=== PATIENT | female | born 1930 | race Caucasian/White ===

== ENCOUNTER 2017-09-13 21:14 | Inpatient (IN) | payer MEDICARE, MEDICAID ==
[~2017-09-13 21:14] MED LIST: ISOVUE-370 76%-LOCM 1 ML ONE
[2017-09-13 22:23] LABS: Lactic Acid - Sepsis 1.1 mmol/L (0.5-2.2)
[2017-09-13 22:25] LABS: Anion Gap 15 mmol/L (10-20); BUN (Urea Nitrogen) 31 mg/dL (9.8-20.1); Calc. Creatinine Clearance 0 mL/min (70-130); Calcium 9.6 mg/dL (7.8-10.44); Carbon Dioxide 24 mmol/L (23-31); Chloride 110 mmol/L (98-107); Estimated GFR-MDRD 74
[2017-09-13 22:28] LABS: Troponin I 0.046 ng/mL (< 0.028)
--- NOTE | 2017-09-14 00:18 | CT ---
CONTRAST ENHANCED CT IMAGES ABDOMEN AND PELVIS 09/13/17 HISTORY: 87-year-old with history of advanced dementia with abdominal pain. IV contrast was given. Unfortunately oral contrast was not given. The lung bases demonstrate some minimal bibasilar atelectasis. No evidence of free intraperitoneal air seen. The liver, spleen, gallbladder, and pancreas are unremarkable. A small amount of fluid is seen surrounding the right hepatic lobe. Adrenal glands and kidneys are u nremarkable. Extensive gastric distention is seen. There is marked small bowel dilatation with small bowel having diameter up to 5 cm. There is an area of abrupt caliber change in the right lower quadrant of the abdomen in the region o f the ileum. Proximal to this, the small bowel loops are markedly dilated while distal to this from the transition point to the ileocecal valve, the small bowel is decompressed. This is concerning for a focal area of bowel obstruction. The colon demonstrates no significant abnormalities. Some mild d escending colonic diverticulosis is seen. A moderate amount of stool is seen in the rectum. Sigmoid colonic diverticulosis is also present. IMPRESSION: Severe proximal mid small bowel dilatation compatible with small bowel obstruction due to area of fo colleen caliber change in the ileum. this is seen in the right lower quadrant of the abdomen. POS: VIJAY
[2017-09-14] MEDS ORDERED: Ondansetron HCl/PF 4 MG/2 ML Vial IVP PRN (00:24)
[2017-09-14] MEDS ORDERED: hydrALAZINE 20 MG/ML VIAL SLOW IVP PRN ×2 (00:42→02:01)
--- NOTE | 2017-09-14 01:36 | HP ---
PRIMARY CARE PROVIDER: Romulo Puckett MD CHIEF COMPLAINT: Abdominal pain. HISTORY OF PRESENT ILLNESS: Ms. Ann is a pleasant 87-year-old lady who was seen at [facility] on 09/14/2017. The patient is currently not able to provide any history. History was obtained from review of medical records, discussion with the emergency room physician, and discussion with her son over the telephone. At baseline, Ms. Ann is reportedly oriented to person. She has a history of dementia. She was found to have altered mental status yesterday. She was therefore sent to the emergency room. She also reportedly had abdominal pain. Further details about the abdominal pain, were not elicitable. She was found to be in atrial fibrillation/flutter with rapid ventricular response at [place]. She was started on a Cardizem drip and transferred to this facility. Here, she had a CT scan of the abdomen, which reportedly shows small-bowel obstruction. REVIEW OF SYSTEMS: Could not be obtained. Ms. Ann was last hospitalized at this facility for a right MCA stroke in 2015. PAST MEDICAL HISTORY: Significant for hypertension, hypothyroidism, coronary artery disease, congestive heart failure, dyslipidemia, dementia, atrial fibrillation, hysterectomy, and cerebrovascular accident. PAST SURGICAL HISTORY: Hysterectomy and stent placement. PSYCHIATRIC HISTORY: Depression, anxiety. SOCIAL HISTORY: No history of tobacco use, alcohol use, or recreational drug use. She lives at [facility]. CODE STATUS: I have discussed her code status with her son. She is DNR. FAMILY HISTORY: could not be obtained from patient. ALLERGIES: SULFA. CURRENT MEDICATIONS: Include furosemide 20 mg daily, amlodipine 5 mg daily, Ranexa 500 mg daily, Protonix 40 mg daily, atorvastatin 40 mg daily, Xanax 0.25 mg two times a day, Tylenol 500 mg daily, aspirin 325 mg daily, Plavix 75 mg daily, Namenda 10 mg daily, Prozac 10 mg daily, Coreg 12.5 mg two times a day, Ultram 50 mg every 8 hours as needed, and Colace 100 mg daily as needed. PHYSICAL EXAMINATION: GENERAL: Ms. Ann is awake and alert, not in acute distress. VITAL SIGNS: Blood pressure is 117/71, pulse is 85. She is breathing at rate of 30 and saturating 93% on 2 liters of oxygen. She is afebrile. EYES: No scleral icterus. No conjunctival pallor. ENT: Dry mucosal membranes, no oropharyngeal erythema or exudates. NECK: Supple, nontender, normal range of movement, trachea is midline. RESPIRATORY: Accessory muscles of breathing are not active. Chest wall movements are symmetric bilaterally. LUNGS: Clear to auscultation without wheeze, rhonchi, or crepitations. CARDIOVASCULAR: S1 and S2 are heard, tachycardic and irregular. Peripheral pulses palpable. No carotid bruit, no pericardial rub. ABDOMEN: Soft, mild diffuse tenderness, no guarding or rigidity, hypoactive bowel sounds, no hepatomegaly, no splenomegaly. NEUROLOGIC: Full neurologic examination was not possible secondary to the patient's noncooperation. Pupils are equal and reactive to light. There is no facial droop. She is moving all 4 extremities. Deep tendon reflexes 2+, plantar reflexes are downgoing bilaterally. MUSCULOSKELETAL: Moving all 4 extremities, unable to assess power because of the patient's noncooperation. PSYCHIATRIC: Normal mood, normal affect, unable to assess orientation to person , place, or time. LYMPHATIC: No cervical lymphadenopathy. SKIN: No rashes or subcutaneous nodules. LABORATORY DATA: Ms. Ann's labs and investigations were reviewed. I have reviewed her electrocardiogram, which shows atrial fibrillation/flutter with variable AV block. I have also reviewed her chest x-ray, which does not show any pulmonary infiltrates. She also had CT scan of the abdomen and pelvis, which has been reported to show severe proximal, mid small bowel dilatation, combatable with small-bowel obstruction. Laboratory investigations show an elevated sodium of 146, decreased potassium of 3.4, elevated blood urea nitrogen 31, normal creatinine. Indeterminate troponin I of 0.046. White count 10,700, hemoglobin 15.7, normal platelet count. Normal total bilirubin, normal AST, normal ALT, normal alkaline phosphatase. Urinalysis is positive for protein, blood, and bilirubin, negative for nitrites and leukocyte esterase. ASSESSMENT AND PLAN: Ms. Ann is a pleasant 87-year-old lady who was seen at [facility]. Her problem list includes: 1. Atrial fibrillation. Ms. Ann has atrial fibrillation/flutter with variable response. She does have a history of atrial fibrillation in the past. She has been started on a Cardizem drip, we will continue the same. We will monitor her on telemetry and obtain Cardiology Service input. 2. Small-bowel obstruction: Patient has nasogastric tube to suction. The emergency room physician has already discussed her case with surgeon wig sales consultant, who will see her tomorrow. We will await further input. 3. Hypernatremia: The patient is clinically dry. We will provide intravenous fluids and recheck. 4. Hypokalemia: We will replace through IV fluids. 5. History of stroke. We will continue aspirin and Plavix when she is able to take oral medications. 6. Dyslipidemia: Continue statins when she is able to take oral medications. 7. Hypertension: Monitor vital signs, resume home medications when possible, p.r.n. IV hydralazine for now. 8. Dementia: Continue memantine. Many thanks for allowing me to participate in your patient's care. Please feel free to contact me with any questions or concerns. LEVEL OF RISK: High. LEVEL OF COMPLEXITY: High. MTDD
[2017-09-14] MEDS: Diltiazem 125 MG in Sodium Chloride 0.9% 100 ML IVPB SCH ×2 (02:05→15:31)
[2017-09-14] MEDS: Potassium Chloride 30 MEQ in Sodium Chloride 0.9% 1,000 ML IV SCH ×2 (02:06→16:16)
[2017-09-14 06:28] LABS: Mean Platelet Volume 7.8 fL (7.4-10.4); Red Blood Cell (RBC) Count 4.91 mill/uL (4.20-5.40); White Blood Cell (WBC) Count 10.2 thou/uL (4.8-10.8)
[2017-09-14 06:33] LABS: Anion Gap 12 mmol/L (10-20); BUN (Urea Nitrogen) 33 mg/dL (9.8-20.1); Calc. Creatinine Clearance 59 mL/min (70-130); Calcium 9.2 mg/dL (7.8-10.44); Carbon Dioxide 25 mmol/L (23-31); Chloride 114 mmol/L (98-107); Estimated GFR-MDRD 78
[2017-09-14 06:53] LABS: Band 20 % (5-11); Neutrophil 41 % (42-75)
--- NOTE | 2017-09-14 08:08 | RAD ---
SUPINE ABDOMEN: History: Assess NG tube placement. FINDINGS/IMPRESSION: NG tube has been placed. The tip overlies the left upper quadrant residing in the mid gastric fundus . Gas filled dilated loops of small bowel noted in the upper abdomen consistent with recent CT findi ngs. POS: VIJAY
[2017-09-14] MEDS ORDERED: FLU VACC TS2017-18 (>65YR) 0.5 ML SYRINGE IM ONE (09:00)
--- NOTE | 2017-09-14 09:44 | CON ---
DATE OF CONSULTATION: 09/14/2017 HISTORY: The patient is an unfortunate 87-year-old woman with a history of severe dementia who presents with a small-bowel obstruction and was noted be in rapid irregular heart rate. The patient is unable to give a coherent history. She was seen 2 years ago with chest discomfort. She has previously undergone PTCA and stent placement in [place]. The patient was placed on medical therapy. The patient presented in 09/2016 with an acute CVA. She received t- PA. The patient was placed on medical therapy. The patient has a history of atrial fibrillation, but is not on anticoagulation secondary to a fall risk. The patient today is disoriented and unable to give a coherent history. PAST MEDICAL HISTORY: 1. Coronary artery disease. 2. Hypertension. 3. History of atrial fibrillation. 4. Dementia. 5. History of cerebrovascular accident. PAST SURGICAL HISTORY: Hysterectomy. SOCIAL HISTORY: [facility]. FAMILY HISTORY: Unobtainable. REVIEW OF SYSTEMS: Unobtainable. ALLERGIES: SULFA DRUGS. MEDICATIONS ON ADMISSION: Namenda 10 daily, Prozac 10 daily, Coreg 12.5 b.i.d. , Ultram 50 q.8h., Protonix 40 daily, Lipitor 40 daily, Xanax 0.25 b.i.d., Ranexa 500 daily, Norvasc 5 daily, Lasix 20 daily. PHYSICAL EXAMINATION: GENERAL: Elderly woman, alert and oriented x1. VITAL SIGNS: Blood pressure was 116/57, heart rate 90. NECK: Showed no jugular venous distention. LUNGS: Coarse breath sounds bilateral. HEART: Irregular rate and rhythm, normal S1, S2. ABDOMEN: Mildly distended. EXTREMITIES: Showed trace edema. NEUROLOGIC: Alert and oriented x1. VASCULAR: Radial pulses are 2+. SKIN: Warm and dry. LABORATORY: Sodium 147, potassium 3.6, chloride 114, bicarbonate 25, BUN 33, creatinine 0.74, glucose 158. White blood count 10.2, hemoglobin 15.5, hematocrit 48.0, her platelets were 301. Her EKG revealed atrial fibrillation with poor R-wave progression. IMPRESSION: 1. Atrial fibrillation with rapid ventricular response. 2. History of percutaneous transluminal coronary angioplasty and stent placement. 3. History of cerebrovascular accident. 4. Hypertension. 5. Dementia. 6. Small-bowel obstruction. This patient presents with rapid atrial fibrillation and was placed on IV Cardizem. Her heart rate is now fairly well controlled. The patient would be a poor candidate for anticoagulation with her history of falling. From a cardiac standpoint I would continue IV Cardizem. We will follow this patient with you throughout her hospitalization. LELIA
--- NOTE | 2017-09-14 10:03 | PDOC.PN ---
- Subjective Encounter Start Date: 09/14/17 Encounter Start Time: 09:00 Subjective: awakens, not in distress -: follows some verbal stimuli -: deena ng tube to intermittent suction - Objective Resuscitation Status: Resuscitation Status DNR:Do Not Resuscitate MAR Reviewed: Yes Vital Signs & Weight: Vital Signs (12 hours) Temp Pulse Resp BP Pulse Ox 09/14/17 04:00 98.1 F 113 H 16 116/57 L 97 09/14/17 01:35 97.5 F L 112 H 20 96 09/14/17 01:30 97.5 F L 112 H 20 135/62 96 Weight Weight 154 lb I&O: 09/13/17 09/14/17 09/15/17 06:59 06:59 06:59 Intake Total 345 Balance 345 Result Diagrams: 09/14/17 05:59 09/14/17 05:59 Phys Exam - Physical Examination HEENT: PERRLA, sclera anicteric dry mucosa Neck: no JVD, supple Respiratory: no wheezing, no rales Cardiovascular: no significant murmur, irregular Gastrointestinal: soft tenderness + in right quadrants, no rigidity Musculoskeletal: no edema, pulses present old left hemiparesis Dx/Plan (1) Afib Code(s): I48.91 - UNSPECIFIED ATRIAL FIBRILLATION Status: Acute (2) SBO (small bowel obstruction) Code(s): K56.609 - UNSP INTESTNL OBST, UNSP TO PARTIAL VERSUS COMPLETE OBST Status: Acute (3) Dementia Code(s): F03.90 - UNSPECIFIED DEMENTIA WITHOUT BEHAVIORAL DISTURBANCE Status: Chronic Qualifiers: Dementia type: unspecified type Dementia behavioral disturbance: with behavioral disturbance Qualified Code(s): F03.91 - Unspecified dementia with behavioral disturbance (4) Demand ischemia of myocardium Code(s): I24.8 - OTHER FORMS OF ACUTE ISCHEMIC HEART DISEASE Status: Acute (5) Dyslipidemia Code(s): E78.5 - HYPERLIPIDEMIA, UNSPECIFIED Status: Chronic (6) Hypothyroidism Code(s): E03.9 - HYPOTHYROIDISM, UNSPECIFIED Status: Chronic Qualifiers: Hypothyroidism type: unspecified Qualified Code(s): E03.9 - Hypothyroidism , unspecified (7) Left hemiplegia Code(s): G81.94 - HEMIPLEGIA, UNSPECIFIED AFFECTING LEFT NONDOMINANT SIDE Status: Chronic Comment: prior h/o right MCA stroke (8) CAD (coronary artery disease) Code(s): I25.10 - ATHSCL HEART DISEASE OF [place] CORONARY ARTERY W/O ANG PCTRS Status: Chronic Qualifiers: Coronary Disease-Associated Artery/Lesion type: [place] artery [place] vs. transplanted heart: [place] heart (9) Hypertension Code(s): I10 - ESSENTIAL (PRIMARY) HYPERTENSION Status: Chronic Qualifiers: Hypertension type: essential hypertension Qualified Code(s): I10 - Essential (primary) hypertension - Plan is npo with ng tube and intermittent low suction for sbo -: on cardizem drip with v.rates around 100 -: gentle iv hydration -: watch for electrolytes, cbc differential is abnormal and will f/u serially -: sbo per gen surgery advice * . Review of Systems - Medications/Allergies Allergies/Adverse Reactions: Allergies Allergy/AdvReac Type Severity Reaction Status Date / Time Sulfa (Sulfonamide Allergy Verified 10/27/15 01:42 Antibiotics) Medications: Current Medications Acetaminophen (Tylenol) 650 mg [place] Q4H PRN PRN Reason: Headache/Fever or Pain Enoxaparin Sodium (Lovenox) 30 mg SC 0900 IRA Hydralazine HCl (Apresoline) 10 mg SLOW IVP Q6H PRN PRN Reason: SBP Greater Than 170 Diltiazem HCl 125 mg/ Sodium (Chloride) 125 mls @ 10 mls/hr IVPB INF IRA; 10 MG /HR PRN Reason: Protocol Last Admin: 09/14/17 02:05 Dose: 125 mls Potassium Chloride 30 meq/ (Sodium Chloride) 1,015 mls @ 75 mls/hr IV .[id number] IRA Last Admin: 09/14/17 02:06 Dose: 1,015 mls Ondansetron HCl (Zofran) 4 mg IVP Q6H PRN PRN Reason: Nausea/Vomiting Sodium Chloride (Flush - Normal Saline) 10 ml IVF Q12HR IRA Sodium Chloride (Flush - Normal Saline) 10 ml IVF PRN PRN PRN Reason: Saline Flush
--- NOTE | 2017-09-14 10:42 | CON ---
DATE OF CONSULTATION: 09/14/2017 REQUESTING PHYSICIAN: Consult is from the [facility] at [place]. CHIEF COMPLAINT: Bowel obstruction. HISTORY OF PRESENT ILLNESS: This is an 87-year-old female with history of hysterectomy who presents with small-bowel obstruction, abdominal distention, complaining of pain, anorexia, transferred from the shelter. CT scan reveals evidence of small-bowel obstruction. There is no perforation. There is no free fluid or free air on the CT scan. The patient has dementia and is unable to partic ipate in the history. She has also been found to be in atrial flutter. PAST MEDICAL HISTORY: Hypertension, hypothyroidism, coronary artery disease, congestive heart failu re, dyslipidemia, chronic atrial fibrillation, hysterectomy, CVA. PAST SURGICAL HISTORY: Hysterectomy and cardiac stent. MEDICINES TAKEN DAILY: See list. ALLERGIES TO MEDICINES: SULFA. REVIEW OF SYSTEMS: Unable to obtain. CODE STATUS: DNR. PHYSICAL EXAMINATION: VITAL SIGNS: Blood pressure 115/57, pulse 113, respirations 16. She is afebrile. HEENT: Sclerae are anicteric. Oropharynx clear. NECK: No lymphadenopathy. CHEST: Coarse breath sounds. HEART: Regular, increased rate, irregular rhythm. ABDOMEN: Her abdomen is distended, but soft. Tender in the right lower quadrant with localized gua rding, but no rebound. No diffuse peritoneal signs. NG output so far is minimal. LABORATORY AND X-RAY FINDINGS: CT overnight reveals evidence of small-bowel obstruction. White cou nt is 10, hemoglobin is 15. She does have 20 bands. Sodium is 147, potassium 3.6, creatinine 0.71, glucose 158. X-ray of the abdomen this morning does reveal persistent dilation of the small bowel, small intestin e, but there is also some air in colon. ASSESSMENT: 1. Small-bowel obstruction. 2. History of atrial fibrillation. 3. Dementia. PLAN: Discussed with the son, Jennifer Ann, the fact that her prognosis is poor with or without op eration and that she is a poor candidate for any surgical procedure. We discussed that most likely she will resolve this without surgery; however, with her not being able to communicate we could be m issing more of an ischemic segment of intestine because it is hard to define her response to NG tube . She is fairly tender on exam and she has 20 bands; however, family wishes to proceed more conserv ative route for now. We will continue NG, n.p.o. I appreciate Cardiology's assistance and Medicine for medical management. We will follow with you.
--- NOTE | 2017-09-14 11:13 | RAD ---
KUB AND UPRIGHT: History: Small bowel obstruction. FINDINGS: There is marked dilatation in the small bowel loops. The degree of dilatation may be slightly improv ed as compared to the previous CT examination of 09-13-17. No free air. NG tube is seen below the he midiaphragm. Contrast from the previous CT is seen within the bladder. There are arthritic changes o f the spine. PORTABLE CHEST: Heart size is borderline considering portable technique. There are atherosclerotic changes of the ao rta. The lungs are clear of infiltrates. IMPRESSION: Findings compatible with small bowel obstruction. There may be minimal improvement to the distention of the small bowel loops as compared to the prior exam. POS: OFF
[2017-09-14] MEDS: Enoxaparin Sodium 30 MG/0.3 ML SYRINGE SC SCH (12:36)
[2017-09-15] MEDS: Diltiazem 125 MG in Sodium Chloride 0.9% 100 ML IVPB SCH ×2 (02:16→16:04)
[2017-09-15] MEDS: Potassium Chloride 30 MEQ in Sodium Chloride 0.9% 1,000 ML IV SCH ×2 (05:09→18:43)
[2017-09-15 05:52] LABS: Anion Gap 13 mmol/L (10-20); BUN (Urea Nitrogen) 29 mg/dL (9.8-20.1); Calc. Creatinine Clearance 68 mL/min (70-130); Calcium 9.3 mg/dL (7.8-10.44); Carbon Dioxide 21 mmol/L (23-31); Chloride 121 mmol/L (98-107); Estimated GFR-MDRD 89
[2017-09-15 06:14] LABS: Band 40 % (5-11); Hematocrit 46.5 % (36.0-47.0); Mean Platelet Volume 7.8 fL (7.4-10.4); Neutrophil 43 % (42-75); Red Blood Cell (RBC) Count 4.69 mill/uL (4.20-5.40); Toxic Granulation SLIGHT; Vacuoles SLIGHT; White Blood Cell (WBC) Count 12.4 thou/uL (4.8-10.8)
[2017-09-15] MEDS: Enoxaparin Sodium 30 MG/0.3 ML SYRINGE SC SCH (09:57)
--- NOTE | 2017-09-15 12:08 | PRG ---
DATE OF SERVICE: 09/15/2017 SUBJECTIVE: Ms. Ann is having more trouble breathing overnight. She still remains tachycardic o n Cardizem drip. Her abdomen is soft, but tender in the right side with guarding. She continues to have a left shift on her white count. ASSESSMENT: High grade small-bowel obstruction with advanced age and dementia, prognosis is extreme ly poor. PLAN: I discussed with the son and daughter at the bedside this morning, they wish for more palliat phyllis care options and comfort care only after I explained the prognosis of operation versus not opera ting. We will consult the palliative care team. No plans for surgery, comfort measures only.
--- NOTE | 2017-09-15 14:17 | PDOC.PN ---
- Subjective Encounter Start Date: 09/15/17 Encounter Start Time: 08:00 Pt seen for followup re; atrial fibrillation. Not answering questions, unable to complete ROS. - Objective Resuscitation Status: Resuscitation Status DNR:Do Not Resuscitate MAR Reviewed: Yes Vital Signs & Weight: Vital Signs (12 hours) Temp Pulse Pulse Pulse Resp BP BP 09/15/17 12:00 98.8 F 104 H 33 H 09/15/17 10:24 99 114 H 132/62 120/57 L 09/15/17 09:51 100.0 F H 106 H 22 H 09/15/17 08:00 100.0 F H 106 H 22 H 09/15/17 04:02 97.0 F L 110 H 16 09/15/17 02:34 BP Pulse Ox Pulse Ox Pulse Ox 09/15/17 12:00 119/60 93 L 09/15/17 10:24 93 L 96 09/15/17 09:51 131/64 93 L 09/15/17 08:00 93 L 09/15/17 04:02 123/58 L 93 L 09/15/17 02:34 93 L Weight Admit Weight 154 lb Weight 156 lb 11.2 oz I&O: 09/14/17 09/15/17 09/16/17 06:59 06:59 06:59 Intake Total 345 2812 Output Total 825 Balance 345 1987 Result Diagrams: 09/15/17 05:04 09/15/17 05:04 EKG Reviewed by me: Yes (Tele: branden garcia) Phys Exam - Physical Examination Constitutional: NAD HEENT: moist MMs Neck: supple Respiratory: no wheezing, no rales, no rhonchi, clear to auscultation bilateral Cardiovascular: no rub, irregular Gastrointestinal: soft, no distention, positive bowel sounds Mild diffuse tenderness, no guarding or rigidity Musculoskeletal: pulses present Neurological: moves all 4 limbs Lymphatic: no nodes Psychiatric: normal affect Deviation from normal: Oriented to person, unable to assess orientation to person, place or time Skin: no rash, normal turgor, cap refill <2 seconds Dx/Plan (1) Afib Code(s): I48.91 - UNSPECIFIED ATRIAL FIBRILLATION Status: Acute (2) SBO (small bowel obstruction) Code(s): K56.609 - UNSP INTESTNL OBST, UNSP TO PARTIAL VERSUS COMPLETE OBST Status: Acute (3) Hypernatremia Code(s): E87.0 - HYPEROSMOLALITY AND HYPERNATREMIA Status: Acute (4) Physical debility Code(s): R53.81 - OTHER [place] Status: Chronic (5) CAD (coronary artery disease) Code(s): I25.10 - ATHSCL HEART DISEASE OF [place] CORONARY ARTERY W/O ANG PCTRS Status: Chronic Qualifiers: Coronary Disease-Associated Artery/Lesion type: [place] artery [place] vs. transplanted heart: [place] heart (6) H/O heart artery stent Code(s): Z95.5 - PRESENCE OF CORONARY ANGIOPLASTY IMPLANT AND GRAFT Status: Chronic (7) Hypertension Code(s): I10 - ESSENTIAL (PRIMARY) HYPERTENSION Status: Chronic Qualifiers: Hypertension type: essential hypertension Qualified Code(s): I10 - Essential (primary) hypertension (8) Hypothyroid Code(s): E03.9 - HYPOTHYROIDISM, UNSPECIFIED Status: Chronic (9) Hypokalemia Code(s): E87.6 - HYPOKALEMIA Status: Resolved - Plan plan discussed w/ family, DVT proph w/SCDs * . Awaiting decision re; surgery for SBO. Awaiting palliative care input. Continue cardizem drip. Review of Systems - Medications/Allergies Allergies/Adverse Reactions: Allergies Allergy/AdvReac Type Severity Reaction Status Date / Time Sulfa (Sulfonamide Allergy Verified 10/27/15 01:42 Antibiotics) Medications: Current Medications Acetaminophen (Tylenol) 650 mg [place] Q4H PRN PRN Reason: Headache/Fever or Pain Enoxaparin Sodium (Lovenox) 30 mg SC 0900 IRA Last Admin: 09/15/17 09:57 Dose: 30 mg Hydralazine HCl (Apresoline) 10 mg SLOW IVP Q6H PRN PRN Reason: SBP Greater Than 170 Diltiazem HCl 125 mg/ Sodium (Chloride) 125 mls @ 10 mls/hr IVPB INF IRA; 10 MG /HR PRN Reason: Protocol Last Admin: 09/15/17 02:16 Dose: 125 mls Potassium Chloride 30 meq/ (Sodium Chloride) 1,015 mls @ 75 mls/hr IV .[id number] IRA Last Admin: 09/15/17 05:09 Dose: 1,015 mls Ondansetron HCl (Zofran) 4 mg IVP Q6H PRN PRN Reason: Nausea/Vomiting Sodium Chloride (Flush - Normal Saline) 10 ml IVF Q12HR IRA Last Admin: 09/15/17 09:57 Dose: Not Given Sodium Chloride (Flush - Normal Saline) 10 ml IVF PRN PRN PRN Reason: Saline Flush
[2017-09-16] MEDS: Diltiazem 125 MG in Sodium Chloride 0.9% 100 ML IVPB SCH ×2 (01:59→16:38)
[2017-09-16] MEDS: Acetaminophen 650 MG Suppository PR PRN ×3 (06:38→16:39)
[2017-09-16 07:01] LABS: Anion Gap 16 mmol/L (10-20); BUN (Urea Nitrogen) 28 mg/dL (9.8-20.1); Calc. Creatinine Clearance 66 mL/min (70-130); Calcium 9.1 mg/dL (7.8-10.44); Carbon Dioxide 16 mmol/L (23-31); Estimated GFR-MDRD 86
[2017-09-16 07:10] LABS: Chloride 129 mmol/L (98-107)
[2017-09-16 07:23] LABS: Hematocrit 48.8 % (36.0-47.0); Mean Platelet Volume 8.5 fL (7.4-10.4); Red Blood Cell (RBC) Count 4.67 mill/uL (4.20-5.40); White Blood Cell (WBC) Count 13.5 thou/uL (4.8-10.8)
[2017-09-16 07:24] LABS: Band 20 % (5-11); Neutrophil 64 % (42-75); Nucleated RBC 1 % (0)
--- NOTE | 2017-09-16 10:11 | PDOC.PN ---
- Subjective Encounter Start Date: 09/16/17 Encounter Start Time: 08:00 Pt seen for followup re; bowel obstruction. Had a large bowel movement earlier today. Opening eyes spontaneously, still not answering questions, unable to complete history or ROS. - Objective Resuscitation Status: Resuscitation Status DNR:Do Not Resuscitate MAR Reviewed: Yes Vital Signs & Weight: Vital Signs (12 hours) Temp Pulse Resp BP Pulse Ox 09/16/17 08:05 100.2 F H 108 H 21 H 117/56 L 92 L 09/16/17 03:23 99.9 F H 104 H 26 H 129/62 91 L 09/16/17 00:00 100 F H Weight Admit Weight 154 lb Weight 158 lb I&O: 09/15/17 09/16/17 09/17/17 06:59 06:59 06:59 Intake Total 2812 1614 Output Total 825 2200 Balance 1986 Result Diagrams: 09/16/17 06:01 09/16/17 06:01 EKG Reviewed by me: Yes (Tele: branden garcia) Phys Exam - Physical Examination Constitutional: NAD HEENT: PERRLA, sclera anicteric, oral pharynx no lesions Dry mucosae Neck: no nodes, no JVD, supple, full ROM Respiratory: no wheezing, no rales, no rhonchi, clear to auscultation bilateral Cardiovascular: no rub, irregular Gastrointestinal: soft, non-tender, no distention, positive bowel sounds Musculoskeletal: pulses present Neurological: moves all 4 limbs Lymphatic: no nodes Psychiatric: normal affect Deviation from normal: Oriented to person, unable to assess orientation to place or time Skin: no rash, normal turgor, cap refill <2 seconds Dx/Plan (1) SBO (small bowel obstruction) Code(s): K56.609 - UNSP INTESTNL OBST, UNSP TO PARTIAL VERSUS COMPLETE OBST Status: Acute (2) Afib Code(s): I48.91 - UNSPECIFIED ATRIAL FIBRILLATION Status: Acute (3) Hypernatremia Code(s): E87.0 - HYPEROSMOLALITY AND HYPERNATREMIA Status: Acute (4) Physical debility Code(s): R53.81 - OTHER MALAISE Status: Chronic (5) CAD (coronary artery disease) Code(s): I25.10 - ATHSCL HEART DISEASE OF [place] CORONARY ARTERY W/O ANG PCTRS Status: Chronic Qualifiers: Coronary Disease-Associated Artery/Lesion type: [place] artery [place] vs. transplanted heart: platinum heart (6) H/O heart artery stent Code(s): Z95.5 - PRESENCE OF CORONARY ANGIOPLASTY IMPLANT AND GRAFT Status: Chronic (7) Hypertension Code(s): I10 - ESSENTIAL (PRIMARY) HYPERTENSION Status: Chronic Qualifiers: Hypertension type: essential hypertension Qualified Code(s): I10 - Essential (primary) hypertension (8) Hypothyroid Code(s): E03.9 - HYPOTHYROIDISM, UNSPECIFIED Status: Chronic (9) Hypokalemia Code(s): E87.6 - HYPOKALEMIA Status: Resolved - Plan plan discussed w/ family, DVT proph w/lovenox * . Discussed with pt's daughter, updated her. Will repeat CT to evaluate bowel obstruction (contrast by NG tube). Pt is clinically dehydrated, continue IV fluids. Continue Cardizem drip. Review of Systems - Medications/Allergies Allergies/Adverse Reactions: Allergies Allergy/AdvReac Type Severity Reaction Status Date / Time Sulfa (Sulfonamide Allergy Verified 10/27/15 01:42 Antibiotics) Medications: Current Medications Acetaminophen (Tylenol) 650 mg NH Q4H PRN PRN Reason: Headache/Fever or Pain Last Admin: 09/16/17 06:38 Dose: 650 mg Enoxaparin Sodium (Lovenox) 30 mg SC 0900 IRA Last Admin: 09/15/17 09:57 Dose: 30 mg Hydralazine HCl (Apresoline) 10 mg SLOW IVP Q6H PRN PRN Reason: SBP Greater Than 170 Diltiazem HCl 125 mg/ Sodium (Chloride) 125 mls @ 10 mls/hr IVPB INF IRA; 10 MG /HR PRN Reason: Protocol Last Admin: 09/16/17 01:59 Dose: 125 mls Potassium Chloride 30 meq/ (Sodium Chloride) 1,015 mls @ 75 mls/hr IV .[id number] IRA Last Admin: 09/15/17 18:43 Dose: 1,015 mls Ondansetron HCl (Zofran) 4 mg IVP Q6H PRN PRN Reason: Nausea/Vomiting Sodium Chloride (Flush - Normal Saline) 10 ml IVF Q12HR IRA Last Admin: 09/16/17 06:37 Dose: Not Given Sodium Chloride (Flush - Normal Saline) 10 ml IVF PRN PRN PRN Reason: Saline Flush
[2017-09-16] MEDS: Enoxaparin Sodium 30 MG/0.3 ML SYRINGE SC SCH (10:13)
[2017-09-16] MEDS: Potassium Chloride 30 MEQ in Sodium Chloride 0.9% 1,000 ML IV SCH (10:14)
[2017-09-16] MEDS: Meropenem 1 GM, Admixture Fee 1 EACH in Sodium Chloride 0.9% 100 ML IVPB SCH ×2 (13:06→21:38)
--- NOTE | 2017-09-16 13:19 | CT ---
CT ABDOMEN AND PELVIS WITH CONTRAST: Date: 09/16/17 Multiple axial tomograms obtained through abdomen and pelvis with IV enhancement. HISTORY: Small bowel obstruction. Comparison made to recent CT obtained on 09/13/17. FINDINGS: Images through the lung bases show dense atelectasis and/or consolidation in the posterior left lung base which has occurred since the exam of 09/13/17. Liver, spleen, and pancreas remain unremarkable. Kidneys are unremarkable with no hydronephrosis. NG tube is in place with tip in the region of the gastric fundus. There continues to be significantly dilated loops of small bowel exhibiting air fluid levels. The di stal ileal loops remain decompressed, indicating a relatively high grade obstruction in the mid to d istal small bowel. There is now some mild distention of the right colon which has occurred since the prior study. The left colon remains decompressed. No significant free fluid. No other finding or si gnificant change. IMPRESSION: There continue to be significantly dilated loops of small bowel exhibiting air fluid levels indicati ng a relatively high grade small bowel obstruction in the mid to distal small bowel. The distal ilea l loops are normal caliber. POS: [facility]
[2017-09-16] MEDS ORDERED: Iopamidol 370 76% 50 ML VIAL FS ONE (14:52)
[2017-09-16] MEDS ORDERED: ISOVUE-370 76%-LOCM 1 ML ONE (14:52)
[2017-09-16] MEDS: Sodium Chloride 0.45% 1,000 ML IV SCH ×2 (15:33→21:38)
--- NOTE | 2017-09-16 16:46 | PDOC.EVN ---
Event Note - Event Note Event Note: Discussed with son and daughter, updated them. They would like to see how she does tomorrow, prior to deciding re: hospice. Had fever, blood cultures sent, started on meropenem. Urine cultures are growing E. coli, sensitivities are pending.
--- NOTE | 2017-09-16 18:25 | RAD ---
PORTABLE UPRIGHT CHEST ONE VIEW: 09/16/17 HISTORY: 87-year-old female with followup small bowel obstruction and aspiration. COMPARISON: 09/14/17. There is rotation to the left. NG tube is noted in place. There are prominent parenchymal and pleura l opacity changes in the left base and minimal pleural and parenchymal opacity changes in the right base. There is some mild bilateral vascular congestion. There is diffuse bone demineralization. IMPRESSION: Confluent appearing parenchymal changes in the left lower lobe with some left pleural effusion, evid ence for a left lower lobe pneumonia which could certainly be associated with aspiration. Minimal pl eural and parenchymal changes in the right base, new from the prior study. Mild vascular congestion. Continued short term followup for clearing or stability. POS: [facility]
[2017-09-16 20:18] LABS: Bilirubin Small (Negative); Blood, Urine Negative (Negative); Glucose, Urine (Dipstick) Negative (Negative); Ketone, Urine Trace mg/dL (Negative); Nitrite Negative (Negative); Protein, Urine (Dipstick) 30 mg/dL (Neg-Trace)
[2017-09-16 20:20] LABS: Bacteria/HPF Rare-Few HPF (None Seen); Hyaline Casts/LPF 0-3 HYALINE CAST LPF (0-3 Hyaline); Squamous Epithelial None Seen HPF (0-3)
[2017-09-16 20:26] LABS: RBC/HPF 0-3 HPF (0-3)
[2017-09-17] MEDS: Diltiazem 125 MG in Sodium Chloride 0.9% 100 ML IVPB SCH ×2 (04:22→17:25)
[2017-09-17] MEDS: Meropenem 1 GM, Admixture Fee 1 EACH in Sodium Chloride 0.9% 100 ML IVPB SCH ×3 (04:22→20:03)
[2017-09-17] MEDS: Enoxaparin Sodium 30 MG/0.3 ML SYRINGE SC SCH (08:18)
--- NOTE | 2017-09-17 09:46 | PDOC.PN ---
- Subjective Encounter Start Date: 09/17/17 Encounter Start Time: 09:00 -: non-verbal Subjective: responds to questions with head movement and tracking. denies pain -: daughter at bedside. - Objective Resuscitation Status: Resuscitation Status DNR:Do Not Resuscitate MAR Reviewed: Yes Vital Signs & Weight: Vital Signs (12 hours) Temp Pulse Resp BP Pulse Ox 09/17/17 08:10 99.2 F 94 36 H 108/54 L 93 L 09/17/17 04:02 97.8 F 95 20 107/52 L 92 L 09/16/17 23:15 98.7 F 97 18 115/57 L 95 Weight Admit Weight 154 lb Weight 161 lb I&O: 09/16/17 09/17/17 09/18/17 06:59 06:59 06:59 Intake Total 1614 2720 Output Total 2200 1230 Balance -586 1490 Result Diagrams: 09/16/17 06:01 09/16/17 06:01 Phys Exam - Physical Examination Constitutional: NAD HEENT: PERRLA ventimask Neck: supple, full ROM coarse Cardiovascular: irregular distended, hypoactive bs Musculoskeletal: no edema Psychiatric: normal affect Deviation from normal: alert Dx/Plan (1) Afib Code(s): I48.91 - UNSPECIFIED ATRIAL FIBRILLATION Status: Chronic (2) Demand ischemia of myocardium Code(s): I24.8 - OTHER FORMS OF ACUTE ISCHEMIC HEART DISEASE Status: Chronic (3) SBO (small bowel obstruction) Code(s): K56.609 - UNSP INTESTNL OBST, UNSP TO PARTIAL VERSUS COMPLETE OBST Status: Acute (4) Dementia Code(s): F03.90 - UNSPECIFIED DEMENTIA WITHOUT BEHAVIORAL DISTURBANCE Status: Chronic Qualifiers: Dementia type: unspecified type Dementia behavioral disturbance: with behavioral disturbance Qualified Code(s): F03.91 - Unspecified dementia with behavioral disturbance (5) Hypothyroidism Code(s): E03.9 - HYPOTHYROIDISM, UNSPECIFIED Status: Chronic Qualifiers: Hypothyroidism type: unspecified Qualified Code(s): E03.9 - Hypothyroidism , unspecified (6) Palliative care encounter Code(s): Z51.5 - ENCOUNTER FOR PALLIATIVE CARE Status: Acute (7) CAD (coronary artery disease) Code(s): I25.10 - ATHSCL HEART DISEASE OF [place] CORONARY ARTERY W/O ANG PCTRS Status: Chronic Qualifiers: Coronary Disease-Associated Artery/Lesion type: [place] artery [place] vs. transplanted heart: [place] heart - Plan cont current plan of care, plan discussed w/ family, continue antibiotics, respiratory therapy will add nebs with xoponex, continue merrem for UTI and possible PNA. -: palliative care disposition pending * .
[2017-09-17] MEDS: Sodium Chloride 0.45% 1,000 ML IV SCH ×2 (10:09→19:38)
[2017-09-17] MEDS: Acetaminophen 650 MG Suppository PR PRN (10:09)
[2017-09-17] MEDS ORDERED: Morphine 10 MG/ML VIAL SLOW IVP PRN (10:24)
[2017-09-17] MEDS ORDERED: Albuterol Sulfate 1.25 MG/3 ML NEB ONE (11:33)
[2017-09-17] MEDS: Albuterol Sulfate 1.25 MG/3 ML NEB NEB SCH ×2 (14:26→22:28)
[2017-09-17] MEDS ORDERED: Morphine 4 MG/ML Carpuject SLOW IVP PRN (16:22)
--- NOTE | 2017-09-17 18:19 | PRG ---
DATE OF SERVICE: 09/17/2017 SUBJECTIVE: Ms. Ann is unresponsive. She is not clearing her secretions well. I was asked to c ome back in because her heart rate increased. She was placed back on Cardizem. PHYSICAL EXAMINATION: VITAL SIGNS: The patient's blood pressure is 101/52, pulse is 110; it is irregular. LUNGS: Diffuse rhonchi. CARDIAC: Irregularly irregular. ASSESSMENT: 1. Previous stroke. 2. Atrial fibrillation with rapid rate. PLAN: Currently, the family is making attempts to place her on hospice, it sounds reasonable. Dr. Yan is to see the patient tomorrow morning.
[2017-09-18] MEDS: Sodium Chloride 0.45% 1,000 ML IV SCH ×2 (03:55→12:33)
[2017-09-18] MEDS: Meropenem 1 GM, Admixture Fee 1 EACH in Sodium Chloride 0.9% 100 ML IVPB SCH (04:25)
[2017-09-18] MEDS: Diltiazem 125 MG in Sodium Chloride 0.9% 100 ML IVPB SCH (05:09)
[2017-09-18 05:30] LABS: Anion Gap 14 mmol/L (10-20); BUN (Urea Nitrogen) 19 mg/dL (9.8-20.1); Calc. Creatinine Clearance 81 mL/min (70-130); Calcium 9.1 mg/dL (7.8-10.44); Carbon Dioxide 17 mmol/L (23-31); Chloride 123 mmol/L (98-107); Estimated GFR-MDRD Greater than 90
[2017-09-18] MEDS: Albuterol Sulfate 1.25 MG/3 ML NEB NEB SCH ×2 (06:27→14:06)
[2017-09-18] MEDS: Enoxaparin Sodium 30 MG/0.3 ML SYRINGE SC SCH (09:30)
--- NOTE | 2017-09-18 09:41 | PQF ---
CLINICAL DOCUMENTATION IMPROVEMENT CLARIFICATION FORM: ICD-10 Updated PLEASE DO AN ADDENDUM TO THE PROGRESS NOTE WITH ANY DOCUMENTATION UPDATES OR ADDITIONS AND CARRY THROUGH TO DC SUMMARY. THANK YOU. DATE: 09/18 ATTN: DR. STEPHANIE SCOTT Please exercise your independent, professional judgment in responding to the clarification form. Clinical indicators are provided on the bottom of this form for your review Please check appropriate box(s): [ ] Encephalopathy: Type: [ x ] Acute [ ] Subacute [ ] Chronic Etiology: [ ] Metabolic [ ] Toxic [ ] Hypoxic [ ] Septic [ ] Unspecified [ ] in the setting of underlying dementia [ ] Other (please specify) [ ] Other diagnosis [ ] Unable to determine For continuity of documentation, please document condition throughout progress notes and discharge summary. Thank You. CLINICAL INDICATORS - SIGNS / SYMPTOMS / LABS ER PHYSICIAN DOCUMENTATION 09/14: TRANSFER FROM [facility] FOR ABDOMINAL PAIN. ALF STAFF STATE SHE IS VERBAL AT BASELINE BUT "RAMBLES". PT WILL ONLY PROVIDE NAME. PATIENT CONFUSED, ORIENTED TO PERSON, RESPONSIVE TO VERBAL STIMULI RA SAT 91%, PLACED ON 2L 94% PHYSICIAN H&P DOCUMENTATION 09/14: AT BASELINE, MS. PARRY IS REPORTEDLY ORIENTED TO PERSON. SHE HAS A HISTORY OF DEMENTIA. SHE WAS FOUND TO HAVE AMS YESTERDAY. ATTENDING PN 09/17: RESPONDS TO QUESTIONS W/HEAD MOVEMENT & TRACKING, DENIES PAIN RISK FACTORS: HYPERNATREMIA HIGH GRADE SBO UTI POSSIBLE PNEUMONIA TREATMENTS: IV ANTIBIOTICS (MEROPENEM 09/16 - PRESENT) IVF (POTASSIUM CHLORIDE IN NS 09/14 - ; 1/2 NS 09/16 - PRESENT) THANK YOU! Armida (This form is maintained as a part of the permanent medical record) 2014 [employer]. All Rights Reserved Armida Amezcua RN, BSN [email or web address] Office: [phone] [facility]
--- NOTE | 2017-09-18 09:57 | PQF ---
CLINICAL DOCUMENTATION IMPROVEMENT CLARIFICATION FORM: ICD-10 Updated PLEASE DO AN ADDENDUM TO THE PROGRESS NOTE WITH ANY DOCUMENTATION UPDATES OR ADDITIONS AND CARRY THROUGH TO DC SUMMARY. THANK YOU. DATE: 09/18 ATTN: DR. STEPHANIE SCOTT Please exercise your independent, professional judgment in responding to the clarification form. Clinical indicators are provided on the bottom of this form for your review Please check appropriate box(s): [ x ] Sepsis due to: (Pna, UTI, gangrenous gall bladder, etc.) [ ] SIRS due to non-infectious process (please specify etiology) [ ] with organ dysfunction [ ] without organ dysfunction [ ] Severe sepsis with acute organ dysfunction of: (Examples: respiratory failure, encephalopathy, acute kidney failure, other) [ ] Localized infection without sepsis [ ] Other diagnosis [ ] Unable to determine In addition, please specify: Present on Admission (POA): [ ] Yes [ ] No [ ] Unable to determine For continuity of documentation, please document condition throughout progress notes and discharge summary. Thank You. CLINICAL INDICATORS - SIGNS / SYMPTOMS / LABS ER PRESENTATION 09/14: GA: 101 RR: 22-30 RA SAT 91%, 2L: 94% AMS (BEYOND BASELINE DEMENTIA) BANDS: 20% HYPERGLYCEMIA (WITHOUT DIAGNOSIS OF DM): 144-173 (09/13 - 09/16) ELEVATED WBC: 12.4-13.5 (09/15 & ) TEMP MAX: 100.4 (09/16) RISK FACTORS HIGH GRADE SBO (ON ADMISSION) UTI (PN 09/17) POSSIBLE PNEUMONIA (PN 09/17) ADVANCED AGE (87) TREATMENTS: TELEMETRY MONITORING IV ANTIBIOTICS( MEROPENEM 09 14 - PRESENT) SERIAL LABS (09/14 - PRESENT) THANK YOU! Armida (This form is maintained as a part of the permanent medical record) 2014 [employer] All Rights Reserved Armida Amezcua RN, BSN [email or web address] Office: [phone] [facility]
--- NOTE | 2017-09-18 10:08 | PQF ---
CLINICAL DOCUMENTATION IMPROVEMENT CLARIFICATION FORM: ICD-10 Updated PLEASE DO AN ADDENDUM TO THE PROGRESS NOTE WITH ANY DOCUMENTATION UPDATES OR ADDITIONS AND CARRY THROUGH TO DC SUMMARY. THANK YOU. DATE: 09/18 ATTN: DR. TYLER BROWN Please exercise your independent, professional judgment in responding to the clarification form. Clinical indicators are provided on the bottom of this form for your review Please check appropriate box(s): [ ] Aspiration Pneumonia [ ] Empirically treating Gram Negative Pneumonia [ ] Empirically treating Anaerobic Pneumonia [ ] Pneumonia secondary to (specify organism / underlying disease) [ ] Simple Pneumonia (community acquired - nosocomial) [ ] Bronchopneumonia [ X ] Pneumonia of unknown etiology [ ] Other diagnosis [ ] Unable to determine In addition, please specify: Present on Admission (POA): [ ] Yes [ ] No [ ] Unable to determine For continuity of documentation, please document condition throughout progress notes and discharge summary. Thank You. CLINICAL INDICATORS - SIGNS / SYMPTOMS / LABS WBC: 12.4 - 13.5 (09/15 & ) T: 100.0 - 100.4 (09/15 - ) AMS, BEYOND BASELINE DEMENTIA CURRENT NG TUBE CXR 09/16: EVIDENCE FOR LLL PNEUMONIA WHICH COULD CERTAINLY BE ASSOCIATED WITH ASPIRATION NURSING NOTE 09/17: PT COUGHING SOME, BUT NOT ABLE TO EXPECTORATE. MOUTH SUCTIONED RESPIRATORY THERAPY NOTE 09/16: PATIENT CHANGED TO NRB BECAUSE SPA02 OF 75-82 ON NC RISK FACTORS: ADVANCED AGE (87) NG TUBE (09/14 - PRESENT) INABILITY TO CLEAR OWN SECRETIONS TREATMENTS: IV ANTIBIOTICS (MEROPENEM 09/14 - PRESENT) IVF (1 NS 1028 - PRESENT) NRB MASK (09/16 - PRESENT) RESPIRATORY TREATMENTS (09/17 - PRESENT) THANK YOU! rAmida (This form is maintained as a part of the permanent medical record) 2014 [employer]. All Rights Reserved Armida Amezcua RN, BSN [email or web address] Office: [phone] [facility]ITAL[facility]
--- NOTE | 2017-09-18 10:23 | PQF ---
CLINICAL DOCUMENTATION IMPROVEMENT CLARIFICATION FORM: ICD-10 Updated PLEASE DO AN ADDENDUM TO THE PROGRESS NOTE WITH ANY DOCUMENTATION UPDATES OR ADDITIONS AND CARRY THROUGH TO DC SUMMARY. THANK YOU. DATE: 09/18 ATTN: DR. STEPHANIE SCOTT Please exercise your independent, professional judgment in responding to the clarification form. Clinical indicators are provided on the bottom of this form for your review Please check appropriate box(s): [X ] Acute Respiratory Failure: [ X ] with Hypoxia [ ] with Hypercapnia [ ] Acute Respiratory Failure due to: (etiology) [ ] Hypoxia [ ] Other diagnosis [ ] Unable to determine In addition, please specify: Present on Admission (POA): [ ] Yes [ ] No [ ] Unable to determine For continuity of documentation, please document condition throughout progress notes and discharge summary. Thank You. ER PRESENTATION: RA SAT 91%, PLACED ON 2L NC: 94% RR: 22-30 RESPIRATORY THERAPY NOTE 09/16: PT PLACED ON NON-REBREATHER MASK BECAUSE OF SPA02 OF 75-82 ON NC NURSING NOTE 09/17: PT COUGHING SOME, BUT NOT ABLE TO EXPECTORATE, MOUTH SUCTIONED. PT STILL TACHYPNIC 02 SAT ON NC 1.5-4.5: 91-100 (09/14 - ) 02 SAT ON NRB: 88-97% (09/17 - PRESENT) RR: 22-38 (09/15 - PRESENT) CLINICAL INDICATORS - SIGNS / SYMPTOMS / LABS RISK FACTORS: ADVANCED AGE (87) POSSIBLE PNEUMONIA INABILITY TO CLEAR SECRETIONS TACH[place]NEA TREATMENTS: SUPPLEMENTAL 02 (09/14 - PRESENT) RESPIRATORY TREATMENTS (09/17 - PRESENT) IV ANTIBIOTICS (MEROPENEM 09/14 - PRESENT) THANK YOU! Armida (This form is maintained as a part of the permanent medical record) 2014 [employer]. All Rights Reserved Armida Amezcua RN, BSN [email or web address] Office: [phone] [facility]
--- NOTE | 2017-09-18 11:51 | PDOC.PN ---
- Subjective Encounter Start Date: 09/18/17 Encounter Start Time: 10:00 -: non-verbal - Objective Resuscitation Status: Resuscitation Status DNR:Do Not Resuscitate MAR Reviewed: Yes Vital Signs & Weight: Vital Signs (12 hours) Temp Pulse Resp BP BP Pulse Ox 09/18/17 09:00 97.8 F 106 H 24 H 112/54 L 93 L 09/18/17 08:00 97.8 F 106 H 24 H 93 L 09/18/17 06:27 114 H 30 H 92 L 09/18/17 04:00 98.2 F 104 H 24 H 126/59 L 95 09/18/17 00:15 98.7 F 99 22 H 124/70 94 L 09/18/17 00:00 97 Weight Admit Weight 154 lb Weight 163 lb 14.4 oz I&O: 09/17/17 09/18/17 09/19/17 06:59 06:59 06:59 Intake Total 2720 3000 Output Total 1230 1375 Balance 1490 1625 Result Diagrams: 09/16/17 06:01 09/18/17 04:18 Additional Labs: Accuchecks 09/17/17 15:37 POC Glucose 117 H Phys Exam - Physical Examination Constitutional: NAD HEENT: sclera anicteric Neck: supple diminished Cardiovascular: irregular distended Musculoskeletal: no edema lethargic Skin: no rash Dx/Plan (1) Afib Code(s): I48.91 - UNSPECIFIED ATRIAL FIBRILLATION Status: Chronic (2) Demand ischemia of myocardium Code(s): I24.8 - OTHER FORMS OF ACUTE ISCHEMIC HEART DISEASE Status: Chronic (3) SBO (small bowel obstruction) Code(s): K56.609 - UNSP INTESTNL OBST, UNSP TO PARTIAL VERSUS COMPLETE OBST Status: Acute (4) Dementia Code(s): F03.90 - UNSPECIFIED DEMENTIA WITHOUT BEHAVIORAL DISTURBANCE Status: Chronic Qualifiers: Dementia type: unspecified type Dementia behavioral disturbance: with behavioral disturbance Qualified Code(s): F03.91 - Unspecified dementia with behavioral disturbance (5) Hypothyroidism Code(s): E03.9 - HYPOTHYROIDISM, UNSPECIFIED Status: Chronic Qualifiers: Hypothyroidism type: unspecified Qualified Code(s): E03.9 - Hypothyroidism , unspecified (6) Palliative care encounter Code(s): Z51.5 - ENCOUNTER FOR PALLIATIVE CARE Status: Acute (7) CAD (coronary artery disease) Code(s): I25.10 - ATHSCL HEART DISEASE OF [place] CORONARY ARTERY W/O ANG PCTRS Status: Chronic Qualifiers: Coronary Disease-Associated Artery/Lesion type: [place] artery [place] vs. transplanted heart: [place] heart - Plan cont current plan of care, continue antibiotics, respiratory therapy inpatient hospice consult pending. clinically improved but guarded * .
[2017-09-18 11:55] VITALS: BMI 26.4
[2017-09-18 12:29] VITALS: BP 117/62; TEMP 99.1
[2017-09-18] MEDS ORDERED: Meropenem 1 GM, IV Admixture Fee-Chemo 1 UNITS in Sterile Water 20 ML SLOW IVP SCH (13:00)
--- NOTE | 2017-09-18 14:53 | DIS ---
DATE OF ADMISSION: 09/14/2017 DATE OF DISCHARGE: 09/18/2017 PRIMARY DISCHARGE DIAGNOSIS: Small-bowel obstruction. SECONDARY DISCHARGE DIAGNOSES: Atrial fibrillation with rapid ventricular response, demand ischemia of myocardium, hypothyroidism and dementia. HOSPITAL COURSE: The patient was brought in on 09/14 with complaints of altered mental status as we ll as abdominal pain. The patient was found to be in atrial fibrillation flutter with rapid ventric ular response. She was started on Cardizem. The patient was seen and assessed by the Cardiology Se rvvirgil as well as General Surgery. It was felt that based on her overall poor health that she was no t a surgical candidate. The patient remained rate controlled on Cardizem. Due to her overall poor health, a palliative care consult was initiated. The family decided that they wanted the patient to be placed in inpatient hospice versus returning back to a prison. The patient was approved f or acceptance to [facility] on 09/18/2017. CONSULTANTS: Cardiology, General Surgery and Palliative Care. PROCEDURES: NG tube placement. DISCHARGE INSTRUCTIONS: Disposition: To inpatient hospice. Diet: N.p.o. at this time as she stil l has a small-bowel obstruction. Discharge medications: We will discontinue all meds and they will be managed by the inpatient hospice physician. PHYSICAL EXAMINATION: GENERAL: The patient is comfortable in no acute distress. HEAD: Normocephalic and atraumatic. LUNGS: Diminished course. CARDIAC: Irregularly irregular. ABDOMEN: Slight distention. EXTREMITIES: No clubbing, cyanosis or edema. FOLLOWUP: The patient once again will be managed by the inpatient hospice physician and her disposi tion will be added accordingly.
--- NOTE | 2017-09-23 19:54 | EKG ---
Test Reason : Blood Pressure : / mmHG Vent. Rate : 114 BPM Atrial Rate : 352 BPM P-R Int : 000 ms QRS Dur : 076 ms QT Int : 316 ms P-R-T Axes : 000 022 038 degrees QTc Int : 435 ms Atrial flutter with variable A-V block Possible Anterior infarct , age undetermined Abnormal ECG Confirmed by GERBER MAC D.O. ([id number]), editor index ROSALBA MONTEJO ([id number]) on 09/23/2017 7:54:36 PM Referred By: Confirmed By:GERBER MAC D.O.
== END 2017-09-18 17:18 | disposition hospice, inpatient (51) | DRG 388 ==
LOC: ERS 21:14 → 2NO 09-14 00:09
PROVIDERS: ADMIT Internal Medicine; ATTEND Internal Medicine
DX: K56.609 Unspecified intestinal obstruction, unspecified as to partial versus complete obstruction (principal); J96.01 Acute respiratory failure with hypoxia; J18.9 Pneumonia, unspecified organism; A41.9 Sepsis, unspecified organism; G93.40 Encephalopathy, unspecified; E87.0 Hyperosmolality and hypernatremia; I24.8 Other forms of acute ischemic heart disease; I11.0 Hypertensive heart disease with heart failure; F03.91 Unspecified dementia, unspecified severity, with behavioral disturbance; I69.354 Hemiplegia and hemiparesis following cerebral infarction affecting left non-dominant side; N39.0 Urinary tract infection, site not specified; I48.2 Chronic atrial fibrillation; E86.0 Dehydration; I48.91 Unspecified atrial fibrillation; F32.9 Major depressive disorder, single episode, unspecified; E03.9 Hypothyroidism, unspecified; Z51.5 Encounter for palliative care; Z66 Do not resuscitate; I25.10 Atherosclerotic heart disease of native coronary artery without angina pectoris; E78.5 Hyperlipidemia, unspecified; F41.9 Anxiety disorder, unspecified; E87.6 Hypokalemia; Z79.02 Long term (current) use of antithrombotics/antiplatelets; Z79.82 Long term (current) use of aspirin; Z95.5 Presence of coronary angioplasty implant and graft; Z91.81 History of falling
CPT/HCPCS: 36415; 36416; 71010; 74000; 74022; 74177; 80048; 81003; 81015; 83605; 85025; 87040; 87077; 87086; 87186; 93005; 94640; A4216; G8978-GP-CN; G8979-GP-CN; G8980-GP-CN; J1650; J2185; J2270; J3480; J7050